=== PATIENT | female | born 1950 | race Native Hawaiian/Other Pacific Islander ===

== ENCOUNTER 2018-11-30 07:55 | Day surgery (SDC) | payer OTHER | END 2018-11-30 10:25 | disposition home or self-care (01) | LOC: OR 07:55 | PROC: 3E0T3TZ Introduction of Destructive Agent into Peripheral Nerves and Plexi, Percutaneous Approach (ICD-10-PCS; principal; 2018-11-30) | PROC: BR16YZZ Fluoroscopy of Lumbar Facet Joint(s) using Other Contrast (ICD-10-PCS; 2018-11-30) | DX: M47.817 Spondylosis without myelopathy or radiculopathy, lumbosacral region (principal) | CPT/HCPCS: J2001 ==

== ENCOUNTER 2018-12-14 07:31 | Day surgery (SDC) | payer OTHER ==
[~2018-12-14] VITALS: Ht 165.1 cm; Wt 74.8 kg
== END 2018-12-14 09:30 | disposition home or self-care (01) ==
LOC: OR 07:31
PROC: 3E0T3TZ Introduction of Destructive Agent into Peripheral Nerves and Plexi, Percutaneous Approach (ICD-10-PCS; principal; 2018-12-14)
PROC: BR16YZZ Fluoroscopy of Lumbar Facet Joint(s) using Other Contrast (ICD-10-PCS; 2018-12-14)
DX: M47.817 Spondylosis without myelopathy or radiculopathy, lumbosacral region (principal)
CPT/HCPCS: J2001

== ENCOUNTER 2019-06-13 10:12 | Day surgery (SDC) | payer OTHER ==
[~2019-06-13] VITALS: Ht 165.1 cm; Wt 77.1 kg
== END 2019-06-13 11:51 | disposition home or self-care (01) ==
LOC: OR 10:12
PROC: 3E0R33Z Introduction of Anti-inflammatory into Spinal Canal, Percutaneous Approach (ICD-10-PCS; principal; 2019-06-13)
PROC: B01BYZZ Fluoroscopy of Spinal Cord using Other Contrast (ICD-10-PCS; 2019-06-13)
DX: M51.16 Intervertebral disc disorders with radiculopathy, lumbar region (principal)
CPT/HCPCS: J1020

== ENCOUNTER → 2019-08-29 | Day surgery (SDC) | payer OTHER ==
[~2019-08-29] VITALS: Ht 30.5 cm; Wt 0.5 kg
== END ==
LOC: OR 08-22 04:00
PROC: 3E0R33Z Introduction of Anti-inflammatory into Spinal Canal, Percutaneous Approach (ICD-10-PCS; principal; 2019-08-29)
PROC: B01BYZZ Fluoroscopy of Spinal Cord using Other Contrast (ICD-10-PCS; 2019-08-29)
DX: M51.16 Intervertebral disc disorders with radiculopathy, lumbar region (principal)
CPT/HCPCS: J1020